=== PATIENT | female | born 1960 ===

== ENCOUNTER 2021-01-10 09:40 | Outpatient (REF) | payer BC, SELFPAY ==
--- NOTE | 2021-01-10 12:44 | MHC.AU.ANO ---
Adult Audiological Evaluation Date of Visit: 01/10/21 Reason for Appointment: Patient reports long-standing history of asymmetrical hearing loss (worse in left ear). As a child, she developed scarlet fever. Shortly after, she required surgery to repair her left tympanic membrane. She has had hearing loss in the left ear since those events. Lately, she has noticed increasing difficulty hearing her family. She finds herself asking for repetition more frequently. Patient tried a pair of hearing aids around 5 years ago at another clinic, but ultimately felt she was not yet ready for amplificaiton. 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 History: No Medical History: Medical History: Headache, Heart Problems, High Blood Pressure, Migraines, Scarlet Fever Otoscopy: Right Ear: Unremarkable Left Ear: Unremarkable Tympanometry: Tympanometry performed due to: To assess integrity of the middle ear system Right Ear: Hypercompliant Middle Ear System (Type Ad) Left Ear: Hypercompliant Middle Ear System (Type Ad) Hearing Evaluation: Transducer(s) Used: Insert Earphones Method: Conventional Audiometry Stimuli Used: Pure Tones Right Ear: Description of Hearing: Normal from 250-2000 Hz, sloping to moderate sensorineural hearing loss around 4000 Hz and rising to borderline-normal by 8000 Hz Left Ear: Description of Hearing: Mild conductive hearing loss from 250-2000 Hz, sloping to moderately-severe mixed hearing loss around 4000 Hz and rising to moderate mixed hearing loss by 8000 Hz Speech Recognition Threshold (SRT): Method Used: Recorded Lists Stimuli Used: Spondee Words Right Ear: 15 dBHL Left Ear: 30 dBHL Word Discrimination: Method: Recorded Lists Word Lists Used: NU-6 Right Ear: 96% at 55 dBHL Left Ear: 88% at 60 dBHL Most Comfortable Level (MCL): Right Ear: 55 dBHL Left Ear: 60 dBHL QuickSIN: SNR loss of 2 dB, which indicates average level of difficulty hearing in noise Recommendations: Audiological re-evaluation in one year. Hearing protection should be used when around loud noise. Trial with amplification is recommended. See Hearing Aid Evaluation report for more information. Diagnosis: Primary Diagnosis: H90.A32 Mixed HL, Unilateral, Left Ear, W/Restricted Contralateral Services Performed: Comprehensive Audiological Evaluation (CPT 52005), Tympanometry (CPT 24799) Signature: Provider: Pascale Ruiz, CCC-A
== END 2021-01-10 09:41 | disposition home or self-care (01) ==
LOC: HO.SH 09:40
PROVIDERS: Visit Provider Nurse Practitioner Family
DX: H90.A32 Mixed conductive and sensorineural hearing loss, unilateral, left ear with restricted hearing on the contralateral side (principal)
CPT/HCPCS: 92557; 92567

== ENCOUNTER 2021-01-10 11:35 | Outpatient (REF) | payer SELFPAY ==
--- NOTE | 2021-01-10 13:50 | MHC.AU.HAS ---
Hearing Aid Evaluation Date of Visit: 01/10/21 Historical Information: Description of Hearing: Right: Normal from 250-2000 Hz, sloping to moderate sensorineural hearing loss around 4000 Hz and rising to borderline-normal by 8000 Hz Left: Mild conductive hearing loss from 250-2000 Hz, sloping to moderately-severe mixed hearing loss around 4000 Hz, and rising to moderate mixed hearing loss by 8000 Hz Summary: Patient was seen for audiological evaluation (see separate report for details). Patient reports that she tried a pair of hearing aids around 5 years ago from another clinic, but did not keep them. She felt at the time that she was hearing so many environmental sounds that it became overwhelming, and she ultimately felt she was not yet ready for amplification. Discussed that since she has likely not heard many of those environmental noises since childhood, amplification can seem overwhelming at first. The more the hearing aids are worn, the easier it is for the brain to get used to those sounds. Over the last few years, she has been noticing increasing difficulty hearing her family, which has been causing frustration. She has been asking for repetition frequently. She feels she is now ready to try hearing aids again. Patient's left ear would benefit from amplification; however, her right ear is on the borderline, as hearing in the right ear is normal from 250-2000 Hz. Demoed a pair of [employer] Lionseekeo Trial instruments so patient could see if she is ready for amplification, and to determine if a binaural or monaural (left) fitting would be preferable. Patient felt she was not getting as much benefit from the right demo instrument. Hearing aid options discussed. She would like a hearing aid for the left ear only. Patient would strongly prefer rechargeable, but is worried about charging the instrument while she is camping. Discussed that the front end specialist has a USB cord, so it could be charged in the USB port of her car (which she says she does currently with her phone when she camps). Additionally, patient could get a portable power bank that has a USB port. Hearing Aid Prescription: Based on the individual?s shared listening needs, communication environments, dexterity, desire for connectivity, and personal preferences, the following prescription for amplification has been made: Left ear: Regional Director Of Admissions: [place] Model: Lionseekeo P50-R Battery Size: Rechargeable Color: P1 Gas Cutter: 1M Action Taken/Action Needed: Medical Clearance to be requested from PCP/ENT Hearing aid fitting was scheduled. Patient paid $350 deposit today. Primary Diagnosis: H90.A32 Mixed HL, Unilateral, Left Ear, W/Restricted Contralateral Signature: Provider: Pascale Ruiz, CCC-A
--- NOTE | 2021-01-13 14:43 | MHC.AU.MED ---
Medical Clearance for Hearing Instrumentation Date: 01/13/21 Patient Name: Roberta Scott Date of : 1960 Referring Provider: Angela Sarkar NP We have seen your patient on 01/10/21 and have determined that they are a candidate for amplification (See accompanying report). Specifically, they would benefit from: Hearing aid use in the left ear There is a statute that addresses Medical Evaluation Requirements prior to fitting a patient with a hearing aid. According to [place] statute [facility] CMR:6.03(1), (a) General. Except as provided in 265 CMR 6.03(1)(b), a retail marketing manager shall not sell a hearing aid unless the prospective user has presented to the retail marketing manager a written statement signed by a licensed physician that states that the patient's hearing loss has been medically evaluated and the patient may be considered a candidate for a hearing aid. The medical evaluation must have taken place within the preceding six months. Please note: Due to the [place] Statute referenced above, we cannot accept a signature other than that of a licensed physician. GASOLINE DRAGLINE OPERATOR and PA signatures cannot be accepted. I am in agreement with the above recommendation. There is no medical contraindication for hearing instrumentation. Physician Signature Date Physician Name (Printed)
== END 2021-01-10 11:36 | disposition home or self-care (01) ==
LOC: HO.HAP 11:35
PROVIDERS: Visit Provider Nurse Practitioner Family
DX: Z46.1 Encounter for fitting and adjustment of hearing aid (principal); H90.A32 Mixed conductive and sensorineural hearing loss, unilateral, left ear with restricted hearing on the contralateral side
CPT/HCPCS: 92591

== ENCOUNTER 2021-01-29 08:34 | Outpatient (REF) | payer SELFPAY ==
--- NOTE | 2021-02-06 13:21 | MHC.AU.HFA ---
Hearing Instrument Fitting- Adult Date of Visit: 01/29/21 Hearing Instrument Dispensed: Left Ear: Scientific Informatics Leader: [employer]ami [employer] Model: KismetEO P50-R Serial Number: [id number] RepairWarranty: 03/23/2024: Battery Size: Rechargeable Color: P1 Carton Making Machinist: 1M Type of Wax Guard: Miguel Angelield Summary of Fitting: Patient arrived for hearing aid fitting. Feedback healthcare manager was run. Verifit performed and levels adjusted as needed. Patient felt 100% target was too loud- reduced to 90% target. Patient was pleased with the sound of the instrument. Discussed and practiced hearing aid care and use. Discussed realistic expectations and process of adjusting to amplified sound. Did not pair to the patient's phone at this time, as patient uses her right ear on the phone. Recommendations: A hearing instrument follow-up was scheduled. Please call our clinic with any questions or concerns. Diagnosis Code(s): Primary Diagnosis: H90.3 Bilateral Sensorineural Hearing Loss Signature: Provider: Pascale Ruiz, TYLER-A
== END 2021-01-29 08:35 | disposition home or self-care (01) ==
LOC: HO.HAP 08:34
PROVIDERS: Visit Provider Nurse Practitioner Family
DX: Z46.1 Encounter for fitting and adjustment of hearing aid (principal); H90.3 Sensorineural hearing loss, bilateral
CPT/HCPCS: V5257; V5299

== ENCOUNTER 2021-02-20 10:28 | Outpatient (REF) | payer SELFPAY | END 2021-02-20 10:29 | disposition home or self-care (01) | LOC: HO.HAP 10:28 | PROVIDERS: Visit Provider Nurse Practitioner Family | DX: Z13.89 Encounter for screening for other disorder (principal) ==

== ENCOUNTER 2023-10-21 11:49 | Outpatient (REF) | payer SELFPAY | END 2023-10-21 11:50 | disposition home or self-care (01) | LOC: HO.HAP 11:49 | PROVIDERS: Visit Provider Nurse Practitioner Family | DX: Z13.89 Encounter for screening for other disorder (principal) ==

== ENCOUNTER 2023-10-26 13:27 | Outpatient (REF) | payer SELFPAY | END 2023-10-26 13:28 | disposition home or self-care (01) | LOC: HO.HAP 13:27 | PROVIDERS: Visit Provider Nurse Practitioner Family | DX: Z13.89 Encounter for screening for other disorder (principal) ==

== ENCOUNTER 2023-12-28 15:16 | Outpatient (REF) | payer SELFPAY | END 2023-12-28 15:17 | disposition home or self-care (01) | LOC: HO.HAP 15:16 | PROVIDERS: Visit Provider Nurse Practitioner Family | DX: Z13.89 Encounter for screening for other disorder (principal) ==

== ENCOUNTER 2023-12-30 13:59 | Outpatient (REF) | payer SELFPAY | END 2023-12-30 14:00 | disposition home or self-care (01) | LOC: HO.HAP 13:59 | PROVIDERS: Visit Provider Nurse Practitioner Family | DX: Z13.89 Encounter for screening for other disorder (principal) ==

== ENCOUNTER 2024-04-14 08:24 | Outpatient (REF) | payer BC, SELFPAY | END 2024-04-14 08:25 | disposition home or self-care (01) | LOC: HO.SH 08:24 | PROVIDERS: Visit Provider Nurse Practitioner Family | DX: Z01.118 Encounter for examination of ears and hearing with other abnormal findings (principal); H90.A32 Mixed conductive and sensorineural hearing loss, unilateral, left ear with restricted hearing on the contralateral side | CPT/HCPCS: 92557 ==